=== PATIENT | female | born 1985 | race Caucasian/White ===

== ENCOUNTER 2019-08-16 18:12 | Emergency (ER) | payer OTHER ==
--- NOTE | 2019-08-16 20:08 | RAD REPORT ---
EXAM DESCRIPTION: RAD - Chest Single View - 08/16/2019 8:00 pm CLINICAL HISTORY: fever, cough Chest pain. COMPARISON: No comparisons FINDINGS: Portable technique limits examination quality. The lungs are grossly clear. The heart is normal in size. No displaced fractures. IMPRESSION: No acute intrathoracic process suspected.
--- NOTE | 2019-08-16 20:29 | ER ---
Nurse's Notes [facility] Name: Danae Miranda Age: 33 yrs Sex: Female : 1985 Arrival Date: 08/16/2019 Time: 18:18 Bed 8 Private MD: Diagnosis: Viral infection, unspecified Presentation: 08/15 18:36 Chief complaint: Patient states: "I've had bronchitis since June and for about a em week now I've been with low grade fever and short of breath.". Coronavirus screen: Surgical mask placed on patient. Patient moved to private room, placed in contact and droplet isolation with eye protection until further assessment. Patient reports a cough. Patient reports shortness of breath or difficulty breathing. Patient reports a measured and/or subjective temperature greater than 100.4F. Patient denies travel on a cruise ship or to a country the [facility] currently lists as an affected area. Patient denies contact with known and/or suspected case of COVID-19. Ebola Screen: No symptoms or risks identified at this time. Initial Sepsis Screen: Does the patient meet any 2 criteria? No. Patient's initial sepsis screen is negative. Does the patient have a suspected source of infection? No. Patient's initial sepsis screen is negative. Risk Assessment: Do you want to hurt yourself or someone else? Patient reports no desire to harm self or others. Onset of symptoms was August 09, 2019. Care prior to arrival: None. 18:36 Method Of Arrival: Ambulatory em 18:36 Acuity: [place] 4 em 08/16 10:17 Coronavirus screen: [facility] has been notified of ss person under investigation for COVID-19. PUI#: [id number]. Triage Assessment: 08/15 18:39 General: Appears in no apparent distress. uncomfortable, Behavior is cooperative, em agitated, anxious, crying. Pain: Complains of pain in mid-sternal area Quality of pain is described as "Feels like I have congestions in there.". Respiratory: Reports shortness of breath at rest Airway is patent Respiratory effort is even, unlabored, Respiratory pattern is regular, symmetrical, Onset: The symptoms/episode began/occurred gradually, the patient has mild shortness of breath. 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 - Social history:: Smoking status: Patient reports the use of cigarette tobacco products, smokes one pack cigarettes per day. Screenin:30 Abuse screen: Denies threats or abuse. Nutritional screening: No deficits noted. ea Tuberculosis screening: No symptoms or risk factors identified. Fall Risk None identified. Assessment: 18:54 Reassessment: SABINA Bishop at bedside. em 19:27 General: Appears in no apparent distress. Behavior is calm, cooperative, appropriate ea for age. Pain: Denies pain. Neuro: Level of Consciousness is awake, alert, obeys commands, Oriented to person, place, time. Cardiovascular: Patient's skin is warm and dry. Respiratory: Airway is patent Respiratory effort is even, unlabored, Respiratory pattern is regular, symmetrical. Derm: Skin is pink, warm \\T\\ dry. Vital Signs: 18:36 BP 147 / 97; Pulse 116; Resp 22; Temp 99.1; Pulse Ox 100% ; Weight 90.72 kg; Height 5 em ft. 7 in. (170.18 cm); 19:28 BP 159 / 98; Pulse 98; Resp 20; Pulse Ox 99% ; ea 18:36 Body Mass Index 31.32 (90.72 kg, 170.18 cm) em ED Course: 18:18 Patient arrived in ED. am2 18:25 Juan Sinclair MD is Attending Physician. kdr 18:36 Dario Floyd PA is PHCP. [facility] 18:38 Ranulfo Nolasco, RN is Primary Nurse. em 18:38 Triage completed. em 18:39 Arm band placed on right wrist. em 19:30 Patient has correct armband on for positive identification. Bed in low position. Call ea light in reach. 20:00 Chest Single View XRAY In Process Unspecified. EDMS Administered Medications: No medications were administered Outcome: 20:29 Discharge ordered by . [place] 21:06 Patient left the ED. vc Addendum: 08/19/2019 15:00 Addendum: Other Attempted to contact pt regarding negative COVID-19 results. number has d m5 been diconnected. 08/20/2019 13:50 Addendum: Other contacted pt's mother, she will have the patient call me back. d m5 Signatures: Dispatcher [employer] Ping Kuo, RN RN dm5 Juan Sinclair MD MD kdr Mickail, Joel, PA PA jmm Munoz, Edgar, RN RN Natalie Almeida RN RN ss Moreno, Amanda am2 Antunez, Elena RN RN Maria Baldwin RN LIZ vasquez
--- NOTE | 2019-08-16 20:29 | EDPHYS ---
Physician Documentation [facility] Name: Danae Miranda Age: 33 yrs Sex: Female : 1985 Arrival Date: 08/16/2019 Time: 18:18 Bed 8 Private MD: ED Physician Juan Sinclair HPI: 08/15 19:07 This 33 yrs old Female presents to ER via Ambulatory with complaints of jmm Cough, Fever, Shortness Of Breath. 19:07 The patient or guardian reports cough. Onset: The symptoms/episode began/occurred jmm gradually, 3 week(s) ago. Modifying factors: The symptoms are alleviated by nothing, the symptoms are aggravated by nothing. Associated signs and symptoms: Pertinent positives: chest pain, fever. This is a 33 year old female with no chronic medical conditions that presents to the ED with complaints of cough, fever, SOB beginning approx 3 weeks ago. Patient states today developing shortness of breath along with anterior chest pain. . 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 - Social history:: Smoking status: Patient reports the use of cigarette tobacco products, smokes one pack cigarettes per day. ROS: 19:07 Constitutional: Positive for body aches, fever. jmm 19:07 Cardiovascular: Positive for chest pain, with cough. 19:07 Respiratory: Positive for cough, shortness of breath. 19:07 All other systems are negative. Exam: 19:07 Constitutional: This is a well developed, well nourished patient who is awake, alert, jmm and in no acute distress. Head/Face: atraumatic. Eyes: EOMI, no conjunctival erythema appreciated ENT: Moist Mucus Membranes Neck: Trachea midline, Supple Chest/axilla: Normal chest wall appearance and motion. Cardiovascular: Regular rate and rhythm. No edema appreciated Respiratory: Normal respirations, no respiratory distress appreciated Abdomen/GI: Non distended, soft Back: Normal ROM Skin: General appearance color normal MS/ Extremity: Moves all extremities, no obvious deformities appreciated, no edema noted to the lower extremities Neuro: Awake and alert, normal gait Psych: Behavior is normal, Mood is normal, Patient is cooperative and pleasant 19:07 Respiratory: the patient does not display signs of respiratory distress, Respirations: normal, Breath sounds: are clear throughout. Vital Signs: 18:36 BP 147 / 97; Pulse 116; Resp 22; Temp 99.1; Pulse Ox 100% ; Weight 90.72 kg; Height 5 em ft. 7 in. (170.18 cm); 19:28 BP 159 / 98; Pulse 98; Resp 20; Pulse Ox 99% ; ea 18:36 Body Mass Index 31.32 (90.72 kg, 170.18 cm) em MDM: 18:48 Patient medically screened. [facility] 20:27 Data reviewed: vital signs, nurses notes. Counseling: I had a detailed discussion with [facility] the patient and/or guardian regarding: the historical points, exam findings, and any diagnostic results supporting the discharge/admit diagnosis, radiology results, the need for outpatient follow up, to return to the emergency department if symptoms worsen or persist or if there are any questions or concerns that arise at home. ED course: Patient is alert and non toxic in appearance in the ED. Non hypoxic. CXR clear. Patient is given strict return precautions. Patient understood and agrees with the plan of care. . 08/15 19:02 Order name: Flu; Complete Time: 20:03 [facility] 08/15 19:02 Order name: Strep; Complete Time: 20:03 [facility] 08/15 19:02 Order name: Chest Single View XRAY; Complete Time: 20:15 [facility] 08/15 19:02 Order name: COVID-19 [facility] 08/15 20:00 Order name: Throat Culture EDMS Administered Medications: No medications were administered Disposition: 08/16 10:49 Co-signature as Attending Physician, Juan Sinclair MD I agree with the assessment and kdr plan of care. Disposition: 08/16/19 20:29 Discharged to Home. Impression: Viral infection, unspecified. - Condition is Stable. - Discharge Instructions: Viral Respiratory Infection. - Prescriptions for Albuterol Sulfate 90 mcg/actuation - inhale 1-2 puff by INHALATION route every 4-6 hours; 1 Inhaler. - Medication Reconciliation Form, Thank You Letter, Antibiotic Education, Prescription Opioid Use form. - Follow up: Private Physician; When: 2 - 3 days; Reason: Recheck today's complaints, Continuance of care, Re-evaluation by your physician. Signatures: Dispatcher [employer] EDJuan Flores MD MD kdr Mickail, Joel, PA PA jmm Munoz, Edgar, RN RN em Maria Barron RN RN vc Corrections: (The following items were deleted from the chart) 08/15 21:06 20:29 08/16/2019 20:29 Discharged to Home. Impression: Viral infection, unspecified. vc Condition is Stable. Forms are Medication Reconciliation Form, Thank You Letter, Antibiotic Education, Prescription Opioid Use. Follow up: Private Physician; When: 2 - 3 days; Reason: Recheck today's complaints, Continuance of care, Re-evaluation by your physician. [place]
[2019-08-16 21:19] VITALS: TEMP 99.1
[2019-08-16 21:21] VITALS: BP 159/98; O2SAT 99
== END 2019-08-16 21:06 | disposition home or self-care (01) ==
LOC: ER 18:12
DX: B34.9 Viral infection, unspecified (principal); Z03.818 Encounter for observation for suspected exposure to other biological agents ruled out; Z88.0 Allergy status to penicillin; F17.210 Nicotine dependence, cigarettes, uncomplicated
CPT/HCPCS: 87070; 87081; 87804 ×2; 71045; 99282; U0001